=== PATIENT | female | born 1940 | race Caucasian/White ===

== ENCOUNTER 2017-09-02 09:26 | Outpatient (CLI) | payer MEDICARE, OTHER ==
[2015-06-26 09:18] VITALS: BP 154/34
== END 2017-09-02 09:27 ==
LOC: RAD 09:26
PROVIDERS: ATTEND Nurse Practitioner Family
DX: Z13.820 Encounter for screening for osteoporosis (principal); Z78.0 Asymptomatic menopausal state
CPT/HCPCS: 77080